=== PATIENT | male | born 1940 | race Caucasian/White ===

== ENCOUNTER 2019-10-23 12:04 | Emergency (ER) | payer MEDICARE ==
[~2019-10-23] VITALS: Ht 167.6 cm; Wt 77.0 kg
[2019-10-23] MEDS: ASPIRIN 81MG TABLET PO ONE (12:53)
[2019-10-23 13:29] LABS: EOSINOPHILS % 4.5 % (0.0-5.0); HEMATOCRIT. 43.7 % (42.0-52.0); LYMPHOCYTES % 42.7 % (20.0-50.0); MEAN CORPUSCULAR HEMOGLOBIN 32.2 pg (28.0-32.0); MEAN CORPUSCULAR VOLUME 94.1 fL (80.0-94.0); MEAN PLATELET VOLUME 9.1 fl (7.4-10.4); MONOCYTES % 8.4 % (2.0-8.0); NEUTROPHILS % 43.4 % (40.0-76.0); PLATELET 161 x1000/uL (130-400); RED BLOOD CELL COUNT 4.65 mill/uL (4.7-6.1); RED CELL DISTRIBUTION WIDTH 13.6 % (11.6-14.6)
[2019-10-23 13:37] LABS: CHLORIDE 111 mEq/L (98-107)
[2019-10-23 19:30] VITALS: BP 126/79
== END 2019-10-23 22:12 | disposition short-term general hospital (02) ==
LOC: ER 12:04
DX: R07.89 Other chest pain (principal); D72.819 Decreased white blood cell count, unspecified; R79.89 Other specified abnormal findings of blood chemistry; I10 Essential (primary) hypertension; E78.00 Pure hypercholesterolemia, unspecified; I25.10 Atherosclerotic heart disease of native coronary artery without angina pectoris; I25.2 Old myocardial infarction; Z98.61 Coronary angioplasty status
CPT/HCPCS: 36415; 71045; 83880; 84484; 93005; 99285